=== PATIENT | female | born 1960 | race Caucasian/White ===

== ENCOUNTER 2025-02-14 17:37 | Emergency (ER) | payer MEDICARE, SELFPAY ==
--- OUTSIDE RECORDS SUMMARY | 2025-02-14 17:38 | XMS_ITS | Clinical Summary ---
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 Medications No information available. Medications Administered No information available. Allergies, Adverse Reactions, Alerts No information available. Results Date Name Value Unit Range Flag Description Internal Other: Authorizatio n - OBS [email or web address] Yes Authoriza tion: Release of Information - Authorize [facility] - Payment and Healthcare Operations ROIAUTHOTHER Yes Authoriz ation: Release of Information - Authorize Others/Insurance - Payment and Healthcare Operations HIECONSENT Yes Consent To Release information to the Health Information Exchange (HIE) [email or web address] Yes Authorizat ion: Authorization for [facility] to leave messages, voicemail, send text messages, send emails AUTHRELHCARE Yes Authoriz ation: Release/Retrieval of Information to/from Healthcare Facilities, Pharmacy Benefit Payers and Providers AUTHPRIVPRAC Yes Authoriz ation: Notice of privacy practices AUTHBENEFIT Yes Authoriza tion: Assignment of Benefits and Payment Agreement Plan of Care No information available. Procedures No information available. Vital Signs No information available. Immunizations No information available. Advance Directives No information available.
--- OUTSIDE RECORDS SUMMARY | 2025-02-14 17:38 | XMS_ITS | Clinical Summary ---
Author Organization [facility] Address [address] [place] [id number] Care Team Providers Care Orthodontist Name Role Phone Herman Bailon MD Primary Care Provider Silvia Lares MD Unavailable [phone] Allergies No known active allergies Medications GLUCOSAMINE-CHONDR OITIN 500 MG-400 MG CAP 2 tablets po once daily 0 03/28/20 07 Active CALTRATE-600 PLUS VITAMIN D3 600 MG-400 UNIT TAB 4 tablets po once daily 0 03/28/20 07 Active blood-glucose meterIndications:E levated blood sugar,Pre-diabetes Inject subcutaneous. Dispense meter, test strips, lancets covered by pt ins. Prediabetes check blood glucose once daily and prn. 1 Each 1 07/14/20 21 Active blood sugar diagnostic (Blood Glucose Test) stripIndications:E levated blood sugar Test 2 times per day. 300 Each 01/14/20 22 Active clindamycin (CLEOCIN) 150 mg capsuleIndications :Hayfever OPEN ONE CAPSULE AND PLACE IN ONE LITER OF NORMAL SALINE AND MIX. IRRIGATE WITH 20CC IN EACH NOSTRIL FOUR TIMES DAILY 10 capsule. 4 01/14/20 22 Active furosemide (Lasix) 20 mg tabletIndications: Dependent edema Take 1 Tablet (20 mg) by mouth every morning. 90 tablet. 05/18/20 22 Active codeine-guaiFENesi n (ROBITUSSIN AC) 10-100 mg/5 mL liquidIndications: Acute maxillary sinusitis, recurrence not specified Take 5 mL by mouth every 6 hours if needed for Cough. 118 mL 02/10/20 24 Active atenoloL (TENORMIN) 50 mg tabletIndications: Essential hypertension Take 1 Tablet (50 mg) by mouth once daily. 90 Tablet 3 12/26/2024 1:15 PM RESIDENTIAL DRIVER 10/30/20 24 Active chlorthalidone (HYGROTON) 25 mg tabletIndications: Essential hypertension Take 1 Tablet (25 mg) by mouth once daily. 90 Tablet 3 12/26/2024 1:15 PM RESIDENTIAL DRIVER 10/30/20 24 Active levothyroxine (SYNTHROID) 112 mcg tabletIndications: Acquired hypothyroidism Take 1 Tablet (112 mcg) by mouth before breakfast. 90 Tablet 3 12/26/2024 1:15 PM RESIDENTIAL DRIVER 10/30/20 24 Active metFORMIN (GLUCOPHAGE XR) 500 mg Extended-Release tabletIndications: Elevated blood sugar Take 2 Tablets (1,000 mg) by mouth two times daily with meals. 360 Tablet 3 12/26/2024 1:15 PM RESIDENTIAL DRIVER 10/30/20 24 Active PARoxetine (PAXIL) 40 mg tabletIndications: Depression, major, recurrent, moderate (HC) Take 1 Tablet (40 mg) by mouth once daily in the morning. 90 Tablet 3 12/26/2024 1:15 PM RESIDENTIAL DRIVER 10/30/20 24 Active potassium chloride (K-TAB) 10 mEq extended-release tabletIndications: Essential hypertension Take 1 Tablet (10 mEq) by mouth two times daily with meals. 180 Tablet 3 12/26/2024 1:15 PM RESIDENTIAL DRIVER 10/30/20 24 Active simvastatin (ZOCOR) 40 mg tabletIndications: Hyperlipidemia, unspecified hyperlipidemia type Take 1 Tablet (40 mg) by mouth at bedtime. 90 Tablet 3 12/26/2024 1:15 PM RESIDENTIAL DRIVER 10/30/20 24 Active omeprazole (PRILOSEC) 40 mg Delayed-Release capsuleIndications :Chronic GERD Take 1 Capsule (40 mg) by mouth once daily before a meal. 90 Capsule 12/26/2024 1:15 PM RESIDENTIAL DRIVER 10/30/20 24 Active Active Problems Problem Noted Date Diagnosed Date Mixed conductive and sensori neural hearing loss of left ear with restricted hearing of right ear 12/11/2024 Tubular adenoma 01/27/2022 Overview (01/30/2022): Repeat colonoscopy in 5 years S/P total knee replacement, left 08/10/2018 History of bilateral knee replacement 08/10/2018 Presence of right artificial knee joint 08/10/20 18 Complex tear of medial menis cus, current injury, right knee, initial encounter 11/25/2015 Other and unspecified hyperlipidemia 09/22/2007 Unspecified essential hypertension 03/28/2007 Anxiety state, unspecified 03/28/2007 Allergic rhinitis, cause unspecified 03/28/2007 Obesity, unspecified 03/28/2007 Unspecified hypothyroidism Polyp of colon Encounters Date Type Department Care Team Description 02/02/2025 2:15 PM RESIDENTIAL DRIVER Orders Only [facility] [address] [place] [address] Lab, [place] [facility] 02/02/2025 1:30 PM RESIDENTIAL DRIVER Ancillary Procedure [facility] [address] [place] [address] 02/02/2025 Travel 01/10/2025 1:40 PM RESIDENTIAL DRIVER Ancillary Procedure [facility] [address] [place] [address] 01/09/2025 1:00 PM RESIDENTIAL DRIVER Office Visit [address] [address] Radha Marie PA Consult (Bilateral hearing loss) 01/09/2025 Travel 12/11/2024 1:00 PM RESIDENTIAL DRIVER Office Visit [address] [address] Radha Roman AuD Hearing Problem (Hearing test ) 12/11/2024 12:20 PM RESIDENTIAL DRIVER Office Visit [address] [address] Herman Bailon MD Ear Problem (Bilateral ears plugged ) 12/11/2024 10:30 AM RESIDENTIAL DRIVER Orders Only [address] [address] Lab, [place] [facility] 12/11/2024 Travel from Last 3 Months Immunizations Immunization Administration Dates Next Due AMB Influenza, IIV4 PF (=>6 mos Flulaval,Fluzone Fluarix)(Flu Clinic Only) 09/16/2017 COVID-19 vaccine (Moderna 100mcg/0.5mL) PF, MDV 03/19/2021,02/19/2021 COVID-19 vaccine (Pfizer-Bio NTech 30mcg/0.3mL) PF, MDV 11/05/2021 Hepatitis A (Adult) 03/28/2007,03/23/2006 Influenza A (H1N1), Inactivated 10/21/2009 Influenza A (H1N1), Inactiva zechariah (Age >=3 Years) 10/20/2009 Influenza RIV4 (Age 18+ Year s) PRESERV FREE 09/16/2019 Influenza Virus, Unspecified 09/02/2012 Influenza, IIV3 (Age >=3 years) 09/21/20 13,08/20/2012,08/24/2011,2009,10/20/2009,10/03/2008 Influenza, IIV4 08/13/2022,,08/13/2020,2015,09/02/2015,08/28/2014 Influenza, Inactivated AIIV4 (Age 65+ Years) Preserv Free 08/31/2023 Influenza, Inactivated IIV3 (Age 65+ Years) Preserv Free 09/29/2024 MMR 03/23/2006 Pneumococcal Conj 20-valent (Prevnar 20) 08/31/2023 Td (Age >=7 Years) 12/01/2004 Tdap 09/21/2024,08/28/2014 Tuberculin (PPD) 02/21/2010 Zoster (Shingrix-RZV, recombinant) 01/05/2020, Family History Medical History Relation Name Comments Cancer Brother lyphoma Heart Disease Father ASCVD Hypertension Father Stroke Father Cancer Mother walderstrom syn drome Hypertension Mother Psychiatric illness Mother depressi on Unknown Mother macular degener ation Cancer-breast No Family History Relation Name Status Comments Brother Father Mother Social History Tobacco Use Types Packs/Day Years Used Date Smoking Tobacco: Never Smokeless Tobacco: Never Tobacco Cessation:Counseling Given: Yes Alcohol Use Standard Drinks/Week Comments No 0 (1 standard drink = 0.6 oz pur e alcohol) ocasionally PHQ-2 Answer Date Recorded PHQ-2 TOTAL SCORE 0 10/30/2024 Social Connections Answer Date Recorded Frequency of Communication with Friends and Fami ly 0 08/31/2023 Financial Resource Strain Answer Date R ecorded Difficulty of Paying Living Expenses 3 08/31/2023 Difficulty of Paying Living Expenses Not on file 08/31/2023 Food Insecurity Answer Date Recorded Worried About Running Out of Food in the Last Ye ar 1 08/31/2023 Transportation Needs Answer Date Record ed Lack of Transportation (Medical) 1 08/31/2023 Housing Stability Answer Date Recorded Unable to Pay for Housing in the Last Year 1 08/31/2023 Comments No Sex and Gender Information Value Date Recorded Sex Assigned at Not on file Legal Sex Female 6:13 AM RESIDENTIAL DRIVER Gender Identity Not on file Sexual Orientation Not on file 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 Not on file Not on file Not on file Obstetrics History Last Filed Vital Signs Vital Sign Reading Time Taken Comments Blood Pressure 104/68 12/11/2024 12:21 PM RESIDENTIAL DRIVER Pulse 68 12/11/2024 12:21 PM RESIDENTIAL DRIVER Temperature 36.9 C (98.5 F) 09/21/2024 1:01 PM CDT Respiratory Rate 18 09/21/2024 1:01 PM CDT Oxygen Saturation 96% 09/21/2024 1:01 PM CDT Inhaled Oxygen Concentration - - Weight 99.8 kg (220 lb) 12/11/2024 12:21 PM RESIDENTIAL DRIVER Height 167.6 cm (5' 6) 12/11/2024 12:21 PM RESIDENTIAL DRIVER Body Mass Index 35.51 12/11/2024 12:21 PM RESIDENTIAL DRIVER Plan of Treatment Health Maintenance Due Date Last Done Comments COVID-19 vaccine series ( season) 2024 11/05/2021, 03/19/2021, 02/19/2021 Depression screening for age 12+ 10/30/2025 10/30/2024, 09/02/2023, 09/02/2023, Additional history exists Medicare Wellness for age 65+ 10/31/2025 10/30/2024, 08/31/2023 BMI (ht and wt on same day) for age 18+ 12/11/2025 12/11/2024, 10/30/2024, 03/30/2024, Additional history exists Mammogram for age 45-75 01/10/2026 01/10/20, 09/29/2023, 11/11/2021, Additional history exists Colonoscopy through age 75 01/27/202701/27, 02/26/2010, 02/26/2010 Lipids for age 45-75 10/23/2029 10/23/2024, 03/22/2024, 08/24/2023, Additional history exists RSV vaccine for adults or (1 - 1-dose 75+ series) 2033 Tetanus booster 09/21/2034 09/21/2024, 08/01, 12/01/2004 Zoster (shingles) series for age 50+ Completed 01/05/2020, 09/22/2019 Hepatitis C screening for ag e 18-79 Completed 08/13/2020 Pneumococcal series for age 50+ Completed DEXA/DXA scan for age 65+ Completed 09/21/2023 Tdap Completed 09/21/2024, 08/28/2014 Influenza Vaccine Completed 09/29/2024, , 08/13/2022, Additional history exists Procedures Procedure Name Priority Date/Time Associated Diagnosis Comments TSH Routine 02/02/2025 2:00 PM RESIDENTIAL DRIVER Acquired hypothyroidism CT TEMPORAL BONES WO Routine 02/02/2025 1:47 PM RESIDENTIAL DRIVER Mixed conductive and sensorineural hearing loss of left ear, unspecified hearing status on contralateral side XR MAMMO GINA BILAT SCREEN Routine 01/10/2025 1:50 PM RESIDENTIAL DRIVER Visit for screening mammogram LIPID PANEL W REFLEX MEASURED LDL Routine 10/23/2024 9:21 AM RESIDENTIAL DRIVER Hyperlipidemia, unspecified hyperlipidemia type XR DXA BONE DENSITY 2 SITES AXIAL Routine 09/21/2023 1:46 PM CDT Menopause COLONOSCOPY 01/27/2022 10:24 AM RESIDENTIAL DRIVER ANTI HCV Routine 08/13/2020 9:20 AM CDT Encounter for hepatitis C screening test for low risk patient from Last 3 Months or Most Recently Relevant to Health Maintenance Results * TSH (02/02/2025 2:00 PM RESIDENTIAL DRIVER) TSH 0.52 0.40 - 4.50 mIU/L [facility] Blood BLOOD SPECIMEN / Unknown 02/02/2025 2:00 PM RESIDENTIAL DRIVER 02/02/2025 2:02 PM RESIDENTIAL DRIVER us Herman Bailon MD CHEMISTRY Final R esult [facility] [place] [facility] [address] [place] [address], [facility] [address] [place] [address] * CT TEMPORAL BONES WO (02/02/2025 1:47 PM RESIDENTIAL DRIVER) Anatomical Region Laterality Modality HEAD Computed Tomogra phy 02/02/2025 2:56 PM RESIDENTIAL DRIVER Impressions 02/02/2025 2:56 PM RESIDENTIAL DRIVER 1. On the left, stable postop changes of left stapes prosthesis. 2. 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 Remainder of the left temporal bone structures are normal 4. On the right, thinning of the osseous margin of the superior semicircular canal. Small focal dehiscence can not be excluded. 5. Remainder of the right temporal bone structures are normal. Please note that all CT scans at this facility use dose modulation, iterative reconstruction, and/or weight-based dosing when appropriate to reduce radiation dose to as low as reasonably achievable. Dictated by Moiz Marrufo MD @ 02/02/2025 2:56:04 PM (Electronically Signed) Narrative 02/02/2025 2:56 PM RESIDENTIAL DRIVER For Patients: As a result of the Century Cures Act, medical imaging exams and procedure reports are released immediately into your electronic medical record. You may view this report before your referring provider. If you have questions, please contact your health care provider. INDICATION: Mixed hearing loss left ear. COMPARISON: 09/24/2010. TECHNIQUE: Noncontrast CT of the temporal bones. FINDINGS: Right: The right mastoid air cells and mastoid antrum are clear. Middle ear cavity is clear. Normal articulation of the ossicular chain. No opacification of sinus tympani. Normal tympanic membrane. The external auditory canal is patent. Tegmen tympani is intact. Normal mineralization of the otic capsule. Normal cochlea and vestibule. Asymmetric high riding right jugular bulb compared the left. No evidence of jugular bulb dehiscence. There is thinning of the osseous margin of the superior semicircular canal immediately adjacent to an air cell of the mastoid region petrous apex (best seen on series 6, image 72). A small focal dehiscence cannot be completely excluded. Normal internal auditory canal. Left: The left mastoid air cells and mastoid antrum are clear. Middle ear cavity is clear. Compared to the previous exam, stable postoperative changes as stapes prosthesis which articulates at the oval window. No opacification of sinus tympani. Normal tympanic membrane. The external auditory canal is patent. Tegmen tympani is intact. Normal mineralization of the otic capsule. Normal cochlea and vestibule. There is thinning and dehiscence of the posterior osseous margin of the superior centered canal (series 10, image 37; series 12, image 67). Normal internal auditory canal. Other: Minimal mucosal thickening within the visualized paranasal sinuses. Procedure Note Moiz Marrufo MD, PhD - 02/02/2025 For Patients: As a result of the Century Cures Act, medical imagingexams and procedure reports are released immediately into your electronicmedical record. You may view this report before your referring provider.If you have questions, please contact your health care provider. INDICATION: Mixed hearing loss left ear. COMPARISON: 09/24/2010. TECHNIQUE: Noncontrast CT of the temporal bones. FINDINGS: Right: The right mastoid air cells and mastoid antrum are clear. Middleear cavity is clear. Normal articulation of the ossicular chain. Noopacification of sinus tympani. Normal tympanic membrane. The externalauditory canal is patent. Tegmen tympani is intact. Normal mineralizationof the otic capsule. Normal cochlea and vestibule. Asymmetric high riding right jugular bulb compared the left. No evidenceof jugular bulb dehiscence. There is thinning of the osseous margin of the superior semicircular canalimmediately adjacent to an air cell of the mastoid region petrous apex(best seen on series 6, image 72). A small focal dehiscence cannot becompletely excluded. Normal internal auditory canal. Left: The left mastoid air cells and mastoid antrum are clear. Middle earcavity is clear. Compared to the previous exam, stable postoperative changes as stapesprosthesis which articulates at the oval window. No opacification of sinus tympani. Normal tympanic membrane. The externalauditory canal is patent. Tegmen tympani is intact. Normal mineralizationof the otic capsule. Normal cochlea and vestibule. There is thinning and dehiscence of the posterior osseous margin of thesuperior centered canal (series 10, image 37; series 12, image 67). Normal internal auditory canal. Other: Minimal mucosal thickening within the visualized paranasal sinuses. IMPRESSION: 1. On the left, stable postop changes of left stapes prosthesis. 2. Focal dehiscence of the posterior osseous margin of the left superiorsemicircular canal 3. Remainder of the left temporal bone structures are normal 4. On the right, thinning of the osseous margin of the superiorsemicircular canal. Small focal dehiscence can not be excluded. 5. Remainder of the right temporal bone structures are normal. Please note that all CT scans at this facility use dose modulation,iterative reconstruction, and/or weight-based dosing when appropriate toreduce radiation dose to as low as reasonably achievable. Dictated by Moiz Marrufo MD @ 02/02/2025 2:56:04 PM (Electronically Signed) us Radha WHALEY CT Final Re sult * XR MAMMO GINA BILAT SCREEN (01/10/2025 1:50 PM RESIDENTIAL DRIVER) Anatomical Region Laterality Modality BREASTS, Breast Left, Breast Right Bilateral Mammography Impressions 01/11/2025 3:01 PM RESIDENTIAL DRIVER There is no radiographic evidence for malignancy. Recommend annual mammograms. MAMMOGRAM ASSESSMENT: ACR 1 Negative PATIENTS: You will also receive a letter with your examination results in an easy to read format. If you have questions about your results, please contact your referring provider. Narrative 01/11/2025 3:01 PM RESIDENTIAL DRIVER For Patients: As a result of the Century Cures Act, medical imaging exams and procedure reports are released immediately into your electronic medical record. You may view this report before your referring provider. If you have questions, please contact your health care provider. XR MAMMO GINA BILAT SCREEN [[id number]] CLINICAL HISTORY: This is an asymptomatic 64 y.o. patient. INDICATION FOR EXAM: Mammogram Screening. TECHNIQUE: CC & MLO views were obtained. This study was evaluated with the assistance of Computer-Aided Detection. Breast Tomosynthesis was used in interpretation. COMPARISON FILM: Yes 09/29/23 [facility] 11/11/21 FINDINGS: The breasts are almost entirely fatty. There are no dominant masses, suspicious micro calcifications or areas of architectural distortion. us Herman Bailon MD MAMMO Final R esult * (ABNORMAL) LIPID PANEL W REFLEX MEASURED LDL (10/23/2024 9:21 AM RESIDENTIAL DRIVER) CHOLESTEROL, TOTAL 186 <200 mg/dL [facility] HDL CHOLESTEROL 74 > OR = 50 mg/dL [facility] TRIGLYCERIDES 172(H) <150 mg/dL [facility] LDL-CHOLESTEROL 85 mg/dL (calc) [facility] Comment: Reference range: <100 Desirable range <100 mg/dL for primary prevention; <70 mg/dL for patients with CHD or diabetic patients with > or = 2 CHD risk factors. LDL-C is now calculated using the Ethan calculation, which is a validated novel method providing better accuracy than the Friedewald equation in the estimation of LDL-C. Jonah JAIN et al. CALIN. 2013;310(19): 6223-6888 (http://education.ViewsIQ.HeyCrowd/faq/FVW577) CHOL/HDLC RATIO 2.5 <5.0 (calc) [facility] NON HDL CHOLESTEROL 112 <130 mg/dL (calc) [facility] Comment: For patients with diabetes plus 1 major ASCVD risk factor, treating to a non-HDL-C goal of <100 mg/dL (LDL-C of <70 mg/dL) is considered a therapeutic option. Blood BLOOD SPECIMEN / Unknown 10/23/2024 9:21 AM RESIDENTIAL DRIVER 10/23/2024 9:22 AM RESIDENTIAL DRIVER Narrative [facility] - 10/24/2024 3:29 AM RESIDENTIAL DRIVER FASTING:YES FASTING: YES Herman Bailon MD CHEMISTRY Final R esult [facility] [address] [place] [address], [facility] [address] [place] [address] * XR DXA BONE DENSITY 2 SITES AXIAL [[id number]] (09/21/2023 1:46 PM CDT) Anatomical Region Laterality Modality Spine, HIPS, HIPL, HIPR Computed Radiography Impressions 09/21/2023 3:41 PM CDT Normal bone density. RECOMMENDATIONS: The National Osteoporosis Foundation recommends pharmacologic treatment for patients with T-scores of -2.5 or less, patients with prior history of fragility fractures, or patients with 10-year probability of greater than 3% at hips or greater than 20% of suffering major osteoporotic fractures. Recommend continued optimization of calcium and vitamin D intake through dietary means and/or supplementation and regular exercise. Repeat scan recommended in 7-10 years. Narrative 09/21/2023 3:41 PM CDT For Patients: Results are automatically released to your [employer] (BackupAgent) account once available, in compliance with federal regulations. This means that you may see your results before your provider has had a chance to review them. Please allow 2-3 business days for your provider to comment on the results. XR DXA Bone Mineral Density (BMD) EXAM LOCATION: [address] [address] PATIENT NAME: SOFIA BREWER DATE OF : 1960 EXAM DATE: 09/21/2023 REQUESTING PROVIDER: Herman Bailon MD GENDER AT : female HEIGHT: 5' 6 (08/31/2023) WEIGHT: 219 lb (08/31/2023) MENOPAUSAL STATUS: Postmenopausal RACE/ETHNICITY: White RISK FACTORS: No Risk Factors CURRENT MEDICATION FOR BONE LOSS: NONE INDICATION: Menopause COMPARISON DATE(S): None DXA scans are compared to prior studies for a patient only when the two (or more) studies were performed on the same scanner. It is not possible to compare data generated on one scanner to data from another because there are not standards in DXA equipment. This applies even if the two scanners are made by the same entry driver operator. PROCEDURE: Dual-energy x-ray absorptiometry performed with routine technique. Reporting is completed in the form of a T-score. The T-score represents the standard deviation from peak bone mass based on young healthy adult. A Z-score is used for diagnosis in premenopausal women, and for men under the age of 50. FINDINGS: RESULT LUMBAR SPINE L1 - L4 BMD: 1.203 g/cm2 T-Score: + 0.2 RESULTS FEMUR Left femoral neck BMD: 1.006 g/cm2 T-Score: - 0.2 Right femoral neck BMD: 1.060 g/cm2 T-Score: + 0.2 Left hip BMD: 1.000 g/cm2 T-Score: - 0.1 Right hip BMD: 1.061 g/cm2 T-Score: + 0.4 WHO criteria: Normal: T-score at or above -1 SD Osteopenia: T-score between -1.1 and -2.4 SD Osteoporosis: T-score at or below -2.5 SD us Herman Bailon MD DEXA Final R esult * COLONOSCOPY (01/27/2022 10:24 AM RESIDENTIAL DRIVER) 01/27/2022 10:2 4 AM RESIDENTIAL DRIVER Narrative Transcriptions Mars Prescott, - 01/27/2022 11:14 AM CST Patient Name: Sofia Brewer Procedure Date: 01/27/2022 Gender: Female Date of : 1960 Admit Type: Ambulatory Procedure: Colonoscopy Proceduralist: Mars Prescott MD [facility] Indications/Pre-Op Diagnosis: Screening for colorectal malignant neoplasm, Last colonoscopy 10 years ago Medications: Propofol per Anesthesia Procedure Description: The patient had risks, benefits and alternatives explained to andgave informed consent. The patient had a stable cardiopulmonary status and judged an adequate candidate for conscious sedation. The colonoscope was passed through the anus and advanced to thececum, identified by appendiceal orifice and ileocecal valve. Thecolonoscopy was performed without difficulty. The patient tolerated the procedure well. The quality of the bowel preparation was good. The ileocecal valve, appendiceal orifice, and rectum were photographed. Complications: No immediate complications. Estimated Blood Loss & Specimen: Estimated blood loss: none. Specimen collected - Yes and sent to Laboratory Findings: A 6 mm polyp was found in the transverse colon. The polyp wassessile. The polyp was removed with a hot snare. Resection and retrieval were complete. Verification of patient identification for the specimen was done. Estimated blood loss was minimal. A 5 mm polyp was found in the sigmoid colon. The polyp was semi-pedunculated. The polyp was removed with a hot snare. Resectionand retrieval were complete. Verification of patient identification forthe specimen was done. Estimated blood loss was minimal. Many small-mouthed diverticula were found in the sigmoid colon. Non-bleeding internal hemorrhoids were found during retroflexion. The hemorrhoids were Grade II (internal hemorrhoids that prolapse butreduce spontaneously). Impressions/Post-Op Diagnosis: - One 6 mm polyp in the transverse colon, removed with a hot snare. Resected and retrieved. - One 5 mm polyp in the sigmoid colon, removed with a hot snare. Resected and retrieved. - Diverticulosis in the sigmoid colon. - Non-bleeding internal hemorrhoids. Recommendation: - Discharge patient to home. - Patient has a contact number available for emergencies. The signsand symptoms of potential delayed complications were discussed with the patient. Return to normal activities tomorrow. Written discharge instructions were provided to the patient. - High fiber diet. - Continue present medications. - Await pathology results. - Repeat colonoscopy in 5 years for surveillance based on pathology results. Moderate Sedation: Moderate (conscious) sedation was personally administered by an anesthesia professional. The following parameters were monitored:oxygen saturation, heart rate, blood pressure, and response to care. Mars Prescott MD 01/27/2022 11:14:50 AM This report has been signed electronically. Note Initiated On: 01/27/2022 10:24 AM Mars Prescott DO PROCEDURE ORD Fi nal Result * ANTI HCV (08/13/2020 9:20 AM CDT) HEPATITIS C ANTIBODY Non-React gene Non-React gene 08/13/2020 5:00 PM CDT [facility] Comment:Antibodies to HCV no t detected; does not exclude the possibility of exposure to HCV. Blood BLOOD SPECIMEN / Unknown Venipuncture / Unknown 08/13/2020 9:20 AM CDT 08/13/2020 9:20 AM CDT Herman Bailon MD SEND OUTS Final R [facility]ult [facility] [address] [place] [address], [place] from Last 3 Months or Most Recently Relevant to Health Maintenance Insurance [facility] MEDICARE ADVANTAGE MR Advance Directives * Full Code (Latest Code Status on File) Date Activated Date Inactivated Comments 01/27/2022 9:16 AM 01/27/2022 1:44 PM Question Answer Comments Code Status Discussion: Discussed * Full Code Date Activated Date Inactivated Comments 11/26/2015 7:58 AM 11/26/2015 1:32 PM * Full Code Date Activated Date Inactivated Comments 11/26/2015 5:57 AM 11/26/2015 7:58 AM Care Teams Orthodontist Relationship Specialty Start Date End Date Herman Bailon MD [address] [place] [id number] PCP - General 10/24/12 Silvia Lares MD [address] [place] [address] Obstetrics and Gynecology 03/07/12
[2025-02-14 17:47] VITALS: BP 155/100; PULSE 69; RESP 16; TEMP 36.4; O2SAT 98; BMI 35.8
--- NOTE | 2025-02-14 18:06 | CRLHL7_ITS ---
For Patients: As a result of the Cures Act, medical imaging exams and procedure reports are released immediately into your electronic medical record. You may view this report before your referring provider. If you have questions, please contact your health care provider. INDICATION: Trauma. TECHNIQUE: Right humerus radiographs, 2 views. COMPARISON: None. FINDINGS: No acute fractures or dislocation. The joint spaces are preserved. No significant joint effusion. No significant soft tissue edema or radiopaque foreign bodies. IMPRESSION: No acute fractures or dislocation. Dictated by Dewayne Gonzalez MD @ 02/14/2025 6:40:38 PM (Electronically Signed)
--- NOTE | 2025-02-14 18:07 | ED_ITS ---
HPI - Extremity Injury (Upper) General Chief Complaint: Extremity Pain/Injury, Upper Stated Complaint: injured R arm Time Seen by Provider: 02/14/25 18:00 History of Present Illness HPI narrative: This 64-year-old female comes in with an injury to her right upper extremity. She states she was walking on a deck and somehow stumbled falling onto her right side. She did not hit her head or have loss of consciousness. Her main complaint is pain in her right upper arm. She did not have any other injury. She was able to get up and ambulate after this fall. Related Data Home Medications ?Medication ?Instructions ?Recorded ?Confirmed atenolol 50 mg tablet 50 mg PO DAILY 02/14/25 02/14/25 levothyroxine 112 mcg tablet 112 mcg PO DAILY 02/14/25 02/14/25 metformin 500 mg tablet,extended 1,000 mg PO BID 02/14/25 02/14/25 release 24 hr potassium chloride 10 mEq 10 meq PO BID 02/14/25 02/14/25 tablet,extended release simvastatin 40 mg tablet 40 mg PO QPM 02/14/25 02/14/25 Previous Rx's ?Medication ?Instructions ?Recorded ketorolac 10 mg tablet 10 mg PO Q8H 5 days #15 tabs 02/14/25 Allergies Allergy/AdvReac Type Severity Reaction Status Date / Time No Known Drug Allergies Allergy Verified 02/14/25 17:45 Review of Systems Status of ROS: Reports: 10 or more systems reviewed and unremarkable except as noted in History and below Narrative: Constitutional: No fevers, no weight gain or loss. Eyes: No discharge. No vision changes. HENT: No congestion, no sore throat, no ear pain. Cardiovascular: No chest pain, no palpitations. Respiratory: No shortness of breath, no wheezes, no cough. Gastrointestinal: No abdominal pain, no vomiting, no diarrhea. Genitourinary: No dysuria, no hematuria. Musculoskeletal: Diffuse pain in the right upper arm. No pain reported in her right forearm. Skin: No rashes, no pruritis. Neurological: No dizziness, weakness, sensory change, speech change. Endo/Heme/Allergies: No bruising or bleeding. No polydipsia. Pysch: no suicidality, no anxiety, no insomnia. All other systems reviewed and are negative. Exam Narrative: Exam Narrative: Constitutional: Well-developed, well-nourished, no acute distress. HEENT: Normocephalic, atraumatic. Neck: Normal range of motion. Nontender. Supple. Heart: Regular. No murmurs. Normal rate. Intact distal pulses. Lungs: Clear to auscultation. No chest discomfort. No wheezes, rhonchi, or rales. Abdomen: Normal bowel sounds. Nontender. No rebound tenderness. Genitalia: Deferred. Back: No midline tenderness. Normal range of motion. Extremities: Pain in the right upper arm with no sign of deformity. Decreased range of motion due to pain. No pain when palpating over the right clavicle. Skin: Intact. No rash. Warm. No erythema or pallor. Neurologic: No altered sensation. No weakness. Alert and oriented. Psychiatric: No suicidality. No anxiety or depression. No insomnia. Nursing notes and vitals signs are reviewed. Const: Vital Signs, click to edit/add: Vital Signs - 24 hr 02/14/25 17:47 Temperature 97.6 F Pulse Rate [Pulse Oximeter] 69 Respiratory Rate 16 Blood Pressure [Le ft Upper Arm] 155/100 H Pulse Oximetry 98 Oxygen Delivery Me thod Room Air Course Vital Signs Vital signs: Initial Vital Signs Temperature 97.6 F 02/14/25 17:47 Temperature Source Temporal Artery Scan 02/14/25 17:47 Pulse Rate 69 02/14/25 17:47 Respiratory Rate 16 02/14/25 17:47 Blood Pressure 155/100 H 02/14/25 17:47 Blood Pressure Mean 118 H 02/14/25 17:47 Blood Pressure Position Sitting 02/14/25 17:47 Pulse Oximetry 98 02/14/25 17:47 Oxygen Delivery Method Room Air 02/14/25 17:47 Vital Signs Temperature 97.6 F 02/14/25 17:47 Pulse Rate 69 02/14/25 17:47 Respiratory Rate 16 02/14/25 17:47 Blood Pressure 155/100 H 02/14/25 17:47 Pulse Oximetry 98 02/14/25 17:47 Oxygen Delivery Method Room Air 02/14/25 17:47 Temperature 97.6 F 02/14/25 17:47 Pulse Rate 69 02/14/25 17:47 Respiratory Rate 16 02/14/25 17:47 Blood Pressure 155/100 H 02/14/25 17:47 Pulse Oximetry 98 02/14/25 17:47 Oxygen Delivery Method Room Air 02/14/25 17:47 Medications Administered Medications: Discontinued Medications Generic Name Dose Route Start Last Admin Trade Name Newton PRN Reason Stop Dose Admin Morphine Sulfate 6 mg 02/14/25 18:06 02/14/25 18:35 Morphine 10 Mg/Ml Inj IM 02/14/25 18:07 6 mg ONCE ONE Administration MDM - Extremity Injury (Upper) MDM Narrative Medical decision making narrative: This patient comes in with an injury to her right upper arm because of a fall that occurred just prior to arrival. X-ray of the right humerus shows no sign of fracture or dislocation. The patient was placed in a sling and received a prescription for Toradol. She also received an intramuscular injection of morphine 10 mg here. I explained to the patient that she may need to follow-up with orthopedic clinic if not improving in a week or so. Imaging Data XR R Humerus: Radiologist's impression: No acute fractures or dislocation. Discharge Plan Discharge Clinical Impression: Contusion of arm, right Patient Disposition: Home w/ Parent or Adult Condition: Stable Additional Instructions: Wear sling and use medicine as needed and directed for pain. Follow-up with orthopedic clinic for ongoing management. Call [phone] for appointment. Prescriptions: New ketorolac 10 mg tablet 10 mg PO Q8H 5 Days Qty: 15 0RF No Action potassium chloride 10 mEq tablet extended release 10 meq PO BID simvastatin 40 mg tablet 40 mg PO QPM metformin 500 mg tablet extended release 24 hr 1,000 mg PO BID atenolol 50 mg tablet 50 mg PO DAILY levothyroxine 112 mcg tablet 112 mcg PO DAILY Follow Up/Referrals: Herman Bailon MD [Primary Care Provider] - Stand Alone Forms: [employer] Info Instructions
[2025-02-14] MEDS: MORPHINE 10 MG/ML inj 6 MG IM (18:35)
--- OUTSIDE RECORDS SUMMARY | 2025-02-14 18:47 | XMS_ITS | Clinical Summary ---
Author Organization [facility] Address [address] , [address] [place] [address] Phone Care Team Providers Care Lip Cutter And Scorer Name Role Phone [facility] Unavailable [...]
--- OUTSIDE RECORDS SUMMARY | 2025-02-14 18:47 | XMS_ITS | Clinical Summary ---
Author Organization [facility] Address [address] [place] [address] Care Team Providers Care Cat Driver Name Role Phone Herman Bailon MD Primary Care Provider Silvia Lares MD Unavailable [phone] Allergies No known active allergies Medications GLUCOSAMINE-CHONDR [...] daily. 90 Tablet 3 12/26/2024 1:15 PM [employer] HAULAWAY DRIVER 10/30/20 24 Active chlorthalidone (HYGROTON) 25 mg tabletIndications: Essential hypertension Take 1 Tablet (25 mg) by mouth once daily. 90 Tablet 3 12/26/2024 1:15 PM [employer] HAULAWAY DRIVER 10/30/20 24 Active levothyroxine (SYNTHROID) 112 mcg tabletIndications: Acquired hypothyroidism Take 1 Tablet (112 mcg) by mouth before breakfast. 90 Tablet 3 12/26/2024 1:15 PM AUTO HAULAWAY DRIVER 10/30/20 24 Active metFORMIN (GLUCOPHAGE XR) 500 mg Extended-Release tabletIndications: Elevated blood sugar Take 2 Tablets (1,000 mg) by mouth two times daily with meals. 360 Tablet 3 12/26/2024 1:15 PM [employer]O HAULAWAY DRIVER 10/30/20 24 Active PARoxetine (PAXIL) 40 mg tabletIndications: Depression, major, recurrent, moderate (HC) Take 1 Tablet (40 mg) by mouth once daily in the morning. 90 Tablet 3 12/26/2024 1:15 PM AUTO HAULAWAY DRIVER 10/30/20 24 Active potassium chloride (K-TAB) 10 mEq extended-release tabletIndications: Essential hypertension Take 1 Tablet (10 mEq) by mouth two times daily with meals. 180 Tablet 3 12/26/2024 1:15 PM [employer] HAULAWAY DRIVER 10/30/20 24 Active simvastatin (ZOCOR) 40 mg tabletIndications: Hyperlipidemia, unspecified hyperlipidemia type Take 1 Tablet (40 mg) by mouth at bedtime. 90 Tablet 3 12/26/2024 1:15 PM [employer] HAULAWAY DRIVER 10/30/20 24 Active omeprazole (PRILOSEC) 40 mg Delayed-Release capsuleIndications :Chronic GERD Take 1 Capsule (40 mg) by mouth once daily before a meal. 90 Capsule 12/26/2024 1:15 PM AUTO HAULAWAY DRIVER 10/30/20 24 Active Active Problems Problem [...] Department Care Team Description 02/02/2025 2:15 PM AUTO HAULAWAY DRIVER Orders Only [facility] [address] [place] [address] Lab, [place] [facility] 02/02/2025 1:30 PM AUTO HAULAWAY DRIVER Ancillary Procedure [facility] [address] [place] [address] 02/02/2025 Travel 01/10/2025 1:40 PM AUTO HAULAWAY DRIVER Ancillary Procedure [facility] [address] [place] [address] 01/09/2025 1:00 PM AUT[employer] HAULAWAY DRIVER Office Visit [address] [address] Radha Marie PA Consult (Bilateral hearing loss) 01/09/2025 Travel 12/11/2024 1:00 PM AUTO HAULAWAY DRIVER Office Visit [address] [address] Radha Roman AuD Hearing Problem (Hearing test ) 12/11/2024 12:20 PM AUTO HAULAWAY DRIVER Office Visit [address] [address] Herman Bailon MD Ear Problem (Bilateral ears plugged ) 12/11/2024 10:30 AM AUTO HAULAWAY DRIVER Orders Only [address] [address] Lab, [place] 12/11/2024 Travel from Last [...] on file Legal Sex Female 6:13 AM AUTO HAULAWAY DRIVER Gender Identity Not on file Sexual Orientation Not on file 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 Not on file Not on file Not on file Obstetrics History Last Filed Vital Signs Vital Sign Reading Time Taken Comments Blood Pressure 104/68 12/11/2024 12:21 PM AUTO HAULAWAY DRIVER Pulse 68 12/11/2024 12:21 PM AUTO HAULAWAY DRIVER Temperature 36.9 C (98.5 F) 09/21/2024 1:01 PM CDT Respiratory Rate 18 09/21/2024 1:01 PM CDT Oxygen Saturation 96% 09/21/2024 1:01 PM CDT Inhaled Oxygen Concentration - - Weight 99.8 kg (220 lb) 12/11/2024 12:21 PM AUTO HAULAWAY DRIVER Height 167.6 cm (5' 6) 12/11/2024 12:21 PM AUTO HAULAWAY DRIVER Body Mass Index 35.51 12/11/2024 12:21 PM AUTO HAULAWAY DRIVER Plan of Treatment Health Maintenance Due [...] Diagnosis Comments TSH Routine 02/02/2025 2:00 PM AUTO HAULAWAY DRIVER Acquired hypothyroidism CT TEMPORAL BONES WO Routine 02/02/2025 1:47 PM AUT[employer] HAULAWAY DRIVER Mixed conductive and sensorineural hearing loss of left ear, unspecified hearing status on contralateral side XR MAMMO GINA BILAT SCREEN Routine 01/10/2025 1:50 PM AUTO HAULAWAY DRIVER Visit for screening mammogram LIPID PANEL W REFLEX MEASURED LDL Routine 10/23/2024 9:21 AM AUTO HAULAWAY DRIVER Hyperlipidemia, unspecified hyperlipidemia type XR DXA BONE DENSITY 2 SITES AXIAL Routine 09/21/2023 1:46 PM CDT Menopause COLONOSCOPY 01/27/2022 10:24 AM AUTO HAULAWAY DRIVER ANTI HCV Routine 08/13/2020 9:20 AM CDT Encounter for hepatitis C screening test for low risk patient from Last 3 Months or Most Recently Relevant to Health Maintenance Results * TSH (02/02/2025 2:00 PM AUTO HAULAWAY DRIVER) TSH 0.52 0.40 - 4.50 mIU/L [facility] Blood BLOOD SPECIMEN / Unknown 02/02/2025 2:00 PM AUTO HAULAWAY DRIVER 02/02/2025 2:02 PM AUTO HAULAWAY DRIVER us Herman Bailon MD CHEMISTRY Final R esult [facility] [address] [place] [address], [facility] [address] [place] [address] * CT TEMPORAL BONES WO (02/02/2025 1:47 PM AUTO HAULAWAY DRIVER) Anatomical Region Laterality Modality HEAD Computed Tomogra phy 02/02/2025 2:56 PM AUTO HAULAWAY DRIVER Impressions 02/02/2025 2:56 PM AUTO HAULAWAY DRIVER 1. On the left, stable postop [...] PM (Electronically Signed) Narrative 02/02/2025 2:56 PM AUTO HAULAWAY DRIVER For Patients: As a result of [...] MAMMO GINA BILAT SCREEN (01/10/2025 1:50 PM AUTO HAULAWAY DRIVER) Anatomical Region Laterality Modality BREASTS, Breast Left, Breast Right Bilateral Mammography Impressions 01/11/2025 3:01 PM AUTO HAULAWAY DRIVER There is no radiographic evidence for malignancy. Recommend annual mammograms. MAMMOGRAM ASSESSMENT: ACR 1 Negative PATIENTS: You will also receive a letter with your examination results in an easy to read format. If you have questions about your results, please contact your referring provider. Narrative 01/11/2025 3:01 PM AUTO HAULAWAY DRIVER For Patients: As a result of the Century Cures Act, medical imaging exams and procedure reports are released immediately into your electronic medical record. You may view this report before your referring provider. If you have questions, please contact your health care provider. XR MAMMO GINA BILAT SCREEN [[id number]] CLINICAL HISTORY: This is an asymptomatic 64 [...] W REFLEX MEASURED LDL (10/23/2024 9:21 AM AUTO HAULAWAY DRIVER) CHOLESTEROL, TOTAL 186 <200 mg/dL [facility] [...] LDL-C. Jonah JAIN et al. CALIN. 2013;310(19): 2698-5538 (http://education.[employer].ASC [place]/faq/PEY038) CHOL/HDLC RATIO 2.5 <5.0 (calc) [facility] NON HDL CHOLESTEROL 112 <130 mg/dL (calc) [facility] Comment: For patients with diabetes plus 1 major ASCVD risk factor, treating to a non-HDL-C goal of <100 mg/dL (LDL-C of <70 mg/dL) is considered a therapeutic option. Blood BLOOD SPECIMEN / Unknown 10/23/2024 9:21 AM AUTO HAULAWAY DRIVER 10/23/2024 9:22 AM AUTO HAULAWAY DRIVER Narrative [facility] - 10/24/2024 3:29 AM AUTO HAULAWAY DRIVER FASTING:YES FASTING: YES Herman Bailon MD CHEMISTRY Final R esult [facility] [address] [place] [address], [facility] [address] [place] [address] * XR DXA BONE DENSITY 2 SITES AXIAL [99341.1] (09/21/2023 1:46 PM CDT) Anatomical Region Laterality [...] Patients: Results are automatically released to your [facility] [employer]) account once available, in compliance with federal regulations. This means that you may see your results before your provider has had a chance to review them. Please allow 2-3 business days for your provider to comment on the results. XR DXA Bone Mineral Density (BMD) EXAM LOCATION: [address] [address] PATIENT NAME: SOFIA BREWER DATE OF : [...] two scanners are made by the same rejoiner. PROCEDURE: Dual-energy x-ray absorptiometry performed with routine [...] R esult * COLONOSCOPY (01/27/2022 10:24 AM AUTO HAULAWAY DRIVER) 01/27/2022 10:2 4 AM AUTO HAULAWAY DRIVER Narrative Transcriptions Mars Prescott, - 01/27/2022 [...] gene Non-React gene 08/13/2020 5:00 PM CDT [facility] Comment:Antibodies to HCV no t detected; does not exclude the possibility of exposure to HCV. Blood BLOOD SPECIMEN / Unknown Venipuncture / Unknown 08/13/2020 9:20 AM CDT 08/13/2020 9:20 AM CDT Herman Bailon MD SEND OUTS Final R esult [facility] [address] [place] [address], [place] from Last 3 Months or Most Recently Relevant to Health Maintenance Insurance [facility] MEDICARE ADVANTAGE MR Advance Directives * Full Code (Latest Code Status on File) Date Activated Date Inactivated Comments 01/27/2022 9:16 AM 01/27/2022 1:44 PM Question Answer Comments Code Status Discussion: Discussed * Full Code Date Activated Date Inactivated Comments 11/26/2015 7:58 AM 11/26/2015 1:32 PM * Full Code Date Activated Date Inactivated Comments 11/26/2015 5:57 AM 11/26/2015 7:58 AM Care Teams Cat Driver Relationship Specialty Start Date End Date Herman Bailon MD [address] [place] [id number] PCP - General 10/24/12 Silvia Lares MD [address] [place] [address] Obstetrics and Gynecology 03/07/12
== END 2025-02-14 19:22 | disposition home or self-care (01) ==
PROVIDERS: Emergency Provider Emergency Medicine Emergency Medical Services; PCP Family Medicine
DX: S40.022A Contusion of left upper arm, initial encounter (principal); W01.0XXA Fall on same level from slipping, tripping and stumbling without subsequent striking against object, initial encounter
CPT/HCPCS: 73060; 94761; 96372; 99283; 99284; J2270